=== PATIENT | female | born 1935 | race Caucasian/White ===

== ENCOUNTER 2016-12-09 11:45 | Emergency (ER) | payer MEDICARE ==
--- NOTE | 2016-12-09 13:25 | ED NURSING NOTES ---
Clinical Report - Nurses [facility] [address] [place] [address] 12/09/2016 11:50 Patient: CAMERON SALINAS TRIAGE Triage time 12:19. Acuity: LEVEL 4. Chief Complaint: DISCOMFORT, BURNING and ITCHING TO BOTH EYES. (Patient states "today it's worse in the L eye, but it goes back and forth between the R and L eyes."). 12:31 12/09/16. Alert. No acute distress. SEPSIS SCREEN: Sepsis Screen. Negative (no infection suspected/documented). ISABELLA COMA SCORE: Isabella Coma Scale: 15- eyes open spontaneously (4); best verbal response- oriented x 4 (5); best motor response- obeys commands (6). --12:31 Pooja Reid R.N. 12:19 12/09/16. BP: 151/70. HR: 73. RR: 16. O2 saturation: 98%. Temp: 97.8 F. Pain level now: 0/10. --12:31 Pooja Reid R.N. Weight: 76.2 kg. Height/Length: 63 inches. BMI: 29.8. --12:27 Pooja Reid R.N. Medications Diavan. --12:26 Pooja Reid R.N. Multivitamins Oral. --12:26 Pooja Reid R.N. Allergies None. --12:26 Pooja Reid R.N. History Arrived by private vehicle. Historian: patient. Onset. (5-6 days ago). She did not sustain an injury. ( Patient states she has been using eye drops to relieve symptoms. She states the eye drops have provided some immediate relief, but sx start again after 10-15 minutes.). Treatment MULTIMEDIA SPECIALIST: (Refresh w/o preservatives and Alaway). PAST MEDICAL HX: Immunizations: up-to-date. Denies current . SOCIAL HX: Never smoker. Occasional alcohol use. No drug use. FALL RISK ASSESSMENT: Fall risk assessment completed. No fall risk identified. NUTRITIONAL RISK ASSESSMENT: The nutritional risk assessment revealed no deficiencies. FUNCTIONAL ASSESSMENT: Functional assessment: no impairments noted. LEARNING NEEDS ASSESSMENT: The learning needs assessment revealed no barriers. SKIN INTEGRITY ASSESSMENT: Skin integrity risk assessment completed. No skin integrity risk identified. --12:31 Pooja Reid R.N. PROBLEMS: Hypertension. Dry eye. --12:27 Pooja Reid R.N. ADDITIONAL SURGERIES: Back Surgery. Lasik. --12:27 Pooja Reid R.N. Interventions ID band on patient. To treatment room. --12:31 Pooja Reid R.N. PHYSICAL ASSESSMENT 12:48 12/09/16. GENERAL / NEURO / PSYCH: Alert. Appears in no acute distress. HEENT: No facial asymmetry noted. Visual acuity without corrective lenses: left eye 20/70; right eye 20/50; both eyes 20/40 minus one letter. Pupils equal, round and reactive to light. EOM intact. RESPIRATORY: Respirations not labored. CVS: Capillary refill less than 2 seconds. SKIN: Skin is warm and dry. Normal skin turgor. --12:48 Pooja Reid R.N. NURSING PROGRESS NOTES 12:35 12/09/16. ( Vision test performed. Patient has 20:50 vision with both eyes, 20:50 with R eye and 20:70 with L eye.). --12:35 Pooja Reid R.N. 12:35 12/09/16. Two patient identifiers checked. Call light placed in reach. Bed placed in lowest position. Brakes of bed on. Patient ready for evaluation- chart flagged and notification provided. --12:35 Pooja Reid R.N. DISPOSITION / DISCHARGE 13:28 12/09/16. The patient left the Emergency Department without being seen by a physician; patient was unaccompanied. The patient appears to be alert, oriented x4 and in no acute distress. The patient did not notify the ED staff prior to leaving the department. The patient stated is leaving the ED due to the long waiting time. Notified the ED physician of patient departure. She left the Emergency Department ambulatory and via private vehicle. ( Patient has been sent away from multiple clinics today d/t insurance and referral issues. Patient frustrated with wait and barriers to accessing care.). The patient eloped. --13:28 Pooja Reid R.N. Locked/Released at 12/09/2016 18:45 by Pooja Reid R.N.
--- NOTE | 2016-12-09 13:25 | ED CLINICAL REPORT ---
Clinical Report - Physicians/Mid Levels [facility] [address] [place] [address] 12/09/2016 11:50 Patient: CAMERON SALINAS Time Seen: 13:02 Dec 09 2016. Arrived- By private vehicle. Historian- patient. HISTORY OF PRESENT ILLNESS Chief Complaint: EYE IRRITATION. CLINICAL IMPRESSION left without being seen. (Electronically signed by Ignacio Osei MD 12/15/2016 14:51)
--- NOTE | 2016-12-09 13:25 | ED CLINICAL REPORT ---
Clinical Report - Physicians/Mid Levels [facility] [address] [place] [address] 12/09/2016 11:50 Patient: ACMERON SALINAS Time Seen: 13:02 Dec 09 2016. Arrived- By private vehicle. Historian- patient. HISTORY OF PRESENT ILLNESS Chief Complaint: EYE IRRITATION. CLINICAL IMPRESSION left without being seen. (Electronically signed by Ignacio Osei MD 12/15/2016 14:51)
--- NOTE | 2016-12-09 13:25 | ED NURSING NOTES ---
Clinical Report - Nurses [facility] [address] [place] [address] 12/09/2016 11:50 Patient: CAMERON SALINAS TRIAGE Triage time 12:19. Acuity: LEVEL 4. Chief Complaint: DISCOMFORT, BURNING and ITCHING TO BOTH EYES. (Patient states "today it's worse in the L eye, but it goes back and forth between the R and L eyes."). 12:31 12/09/16. Alert. No acute distress. SEPSIS SCREEN: Sepsis Screen. Negative (no infection suspected/documented). ISABELLA COMA SCORE: Isabella Coma Scale: 15- eyes open spontaneously (4); best verbal response- oriented x 4 (5); best motor response- obeys commands (6). --12:31 Pooja Reid R.N. 12:19 12/09/16. BP: 151/70. HR: 73. RR: 16. O2 saturation: 98%. Temp: 97.8 F. Pain level now: 0/10. --12:31 Pooja Reid R.N. Weight: 76.2 kg. Height/Length: 63 inches. BMI: 29.8. --12:27 Pooja Reid R.N. Medications Diavan. --12:26 Pooja Reid R.N. Multivitamins Oral. --12:26 Pooja Reid R.N. Allergies None. --12:26 Pooja Reid R.N. History Arrived by private vehicle. Historian: patient. Onset. (5-6 days ago). She did not sustain an injury. ( Patient states she has been using eye drops to relieve symptoms. She states the eye drops have provided some immediate relief, but sx start again after 10-15 minutes.). Treatment MANAGER OF CASE: (Refresh w/o preservatives and Alaway). PAST MEDICAL HX: Immunizations: up-to-date. Denies current . SOCIAL HX: Never smoker. Occasional alcohol use. No drug use. FALL RISK ASSESSMENT: Fall risk assessment completed. No fall risk identified. NUTRITIONAL RISK ASSESSMENT: The nutritional risk assessment revealed no deficiencies. FUNCTIONAL ASSESSMENT: Functional assessment: no impairments noted. LEARNING NEEDS ASSESSMENT: The learning needs assessment revealed no barriers. SKIN INTEGRITY ASSESSMENT: Skin integrity risk assessment completed. No skin integrity risk identified. --12:31 Pooja Reid R.N. PROBLEMS: Hypertension. Dry eye. --12:27 Pooja Reid R.N. ADDITIONAL SURGERIES: Back Surgery. Lasik. --12:27 Pooja Reid R.N. Interventions ID band on patient. To treatment room. --12:31 Pooja Reid R.N. PHYSICAL ASSESSMENT 12:48 12/09/16. GENERAL / NEURO / PSYCH: Alert. Appears in no acute distress. HEENT: No facial asymmetry noted. Visual acuity without corrective lenses: left eye 20/70; right eye 20/50; both eyes 20/40 minus one letter. Pupils equal, round and reactive to light. EOM intact. RESPIRATORY: Respirations not labored. CVS: Capillary refill less than 2 seconds. SKIN: Skin is warm and dry. Normal skin turgor. --12:48 Pooja Reid R.N. NURSING PROGRESS NOTES 12:35 12/09/16. ( Vision test performed. Patient has 20:50 vision with both eyes, 20:50 with R eye and 20:70 with L eye.). --12:35 Pooja Reid R.N. 12:35 12/09/16. Two patient identifiers checked. Call light placed in reach. Bed placed in lowest position. Brakes of bed on. Patient ready for evaluation- chart flagged and notification provided. --12:35 Pooja Reid R.N. DISPOSITION / DISCHARGE 13:28 12/09/16. The patient left the Emergency Department without being seen by a physician; patient was unaccompanied. The patient appears to be alert, oriented x4 and in no acute distress. The patient did not notify the ED staff prior to leaving the department. The patient stated is leaving the ED due to the long waiting time. Notified the ED physician of patient departure. She left the Emergency Department ambulatory and via private vehicle. ( Patient has been sent away from multiple clinics today d/t insurance and referral issues. Patient frustrated with wait and barriers to accessing care.). The patient eloped. --13:28 Pooja Reid R.N. Locked/Released at 12/09/2016 18:45 by Pooja Reid R.N.
--- NOTE | 2016-12-15 14:51 | ED DISCHARGE INSTRUCTIONS ---
Patient: CAMERNO SALINAS General Instructions [facility] VisitID: [id number] [address] [place] [address] 81y, F Registration Date/Time: 12/09/2016 left without being seen. (Electronically signed by Ignacio Osei MD 12/15/2016 14:51)
--- NOTE | 2016-12-15 14:51 | ED MED RECONCILIATION SUMMARY ---
Patient: CAMERON SALINAS Medication Reconciliation Report [facility] VisitID: [id number] [address] [place] [place] [address] 81y, F Registration Date/Time: 12/09/2016 Weight: 76.2 kg Height/Length: 63 in. BMI: 29.8 ALLERGIES: None The patient's Home Medications are listed below: THE FOLLOWING MEDICATIONS NEED TO BE RECONCILED: Diavan Multivitamins Oral The source(s) of the original Home Medication information: Not obtained. The following Medications were given to the patient in the Emergency Department: None. The following Medications were prescribed to the patient: None.
--- NOTE | 2016-12-15 14:51 | ED MAR SUMMARY ---
..... Medication Administration Record [facility] [address] [place], [place] [id number] Patient: CAMERON SALINAS Miguel Ángel Visit ID: [id number] 81y, F Weight: 76.2 kg Height/Length: 63 in BMI: 29.8 ALLERGIES: None
--- NOTE | 2016-12-15 14:51 | ED DISCHARGE INSTRUCTIONS ---
Patient: CAMERON SALINAS General Instructions [facility] VisitID: [id number] [address] [place] [address] 81y, F Registration Date/Time: 12/09/2016 left without being seen. (Electronically signed by Ignacio Osei MD 12/15/2016 14:51)
--- NOTE | 2016-12-15 14:51 | ED MED RECONCILIATION SUMMARY ---
Patient: CAMERON SALINAS Medication Reconciliation Report [facility] VisitID: [id number] [address] [place] [address] 81y, F Registration Date/Time: 12/09/2016 Weight: 76.2 kg Height/Length: 63 in. BMI: 29.8 ALLERGIES: None The patient's Home Medications are listed below: THE FOLLOWING MEDICATIONS NEED TO BE RECONCILED: Diavan Multivitamins Oral The source(s) of the original Home Medication information: Not obtained. The following Medications were given to the patient in the Emergency Department: None. The following Medications were prescribed to the patient: None.
--- NOTE | 2016-12-15 14:51 | ED MAR SUMMARY ---
..... Medication Administration Record [facility] [address], [place] [id number] Patient: CAMERON SALINAS Miguel Ángel Visit ID: [id number] 81y, F Weight: 76.2 kg Height/Length: 63 in BMI: 29.8 ALLERGIES: None
== END 2016-12-09 13:00 | disposition left against medical advice (07) ==
LOC: ED SRH 11:45
DX: Z53.21 Procedure and treatment not carried out due to patient leaving prior to being seen by health care provider (principal)